=== PATIENT | female | born 1975 | race Asian ===

== ENCOUNTER → 2017-08-30 | Outpatient (CLI) | payer BC ==
[~2017-08-30] MED LIST: CLEOCIN; LORTAB 5/500 501 TAB PO; METHOCARBAMOL500 MG PO
== END ==
LOC: MC.RAD 11:27
DX: Z12.31 Encounter for screening mammogram for malignant neoplasm of breast (principal)

== ENCOUNTER → 2022-01-01 | Outpatient (CLI) | payer BC | LOC: MC.RAD 09:30 | DX: Z12.31 Encounter for screening mammogram for malignant neoplasm of breast (principal) ==

== ENCOUNTER → 2023-10-19 | Outpatient (CLI) | payer BC | LOC: MC.RAD 10:55 | DX: Z12.31 Encounter for screening mammogram for malignant neoplasm of breast (principal) ==

== ENCOUNTER → 2023-12-13 | Outpatient (CLI) | payer BC | LOC: COL.LAB 14:18 | DX: J47.9 Bronchiectasis, uncomplicated (principal) ==